=== PATIENT | female | born 1960 | race Caucasian/White ===

== ENCOUNTER 2022-04-05 09:12 | Inpatient (IN) | payer MEDICARE, MEDICAID ==
[2022-03-29 16:23] LABS: CLARITY,URINE CLEAR (Clear); COLOR,URINE YELLOW (Yellow); GLUCOSE, URINE NEGATIVE (Neg); KETONES,URINE NEGATIVE (Neg); LEUKOCYTE ESTERASE ,URINE NEGATIVE (Neg); NITRITES, URINE NEGATIVE (Neg); OCCULT BLOOD,URINE NEGATIVE (Neg); PROTEIN,URINE NEGATIVE (Neg); UROBILINOGEN,URINE 0.2 E.U/dL (0.2-1.0)
[2022-03-29 16:27] LABS: UA COLLECTION TYPE VOIDED
[2022-03-29 16:57] LABS: BASOPHILS # (AUTO) 0.1 X10'3 (0-0.2); BASOPHILS % (AUTO) 1.9 % (0-1); EOSINOPHILS # (AUTO) 0.1 X10'3 (0-0.9); EOSINOPHILS % (AUTO) 1.9 % (0-6); LYMPHOCYTES # (AUTO) 2.3 X10'3 (1.1-4.8); LYMPHOCYTES % (AUTO) 33.9 % (21-51); MEAN CORPUSCULAR HEMOGLOBIN 30.4 PG (27.0-31.0); MEAN CORPUSCULAR HGB CONC 34.2 g/dL (33.0-36.5); MONOCYTES # (AUTO) 0.5 X10'3 (0-0.9); MONOCYTES % (AUTO) 6.8 % (2-12); NEUTROPHILS # (AUTO) 3.8 X10'3 (1.8-7.7); NEUTROPHILS % (AUTO) 55.5 % (42-75); PRE OP HEMATOCRIT 40.9 % (35.0-45.0); PRE OP PLATELET COUNT 318 X10'3 (140-440); RED BLOOD COUNT 4.59 X10'6 (4.20-5.60); RED CELL DISTRIBUTION WIDTH 13.1 % (11.5-14.5)
[2022-03-29 17:06] LABS: PRE OP PROTIME 10.8 SECONDS (9.0-12.0)
[2022-03-29 17:10] LABS: ALBUMIN 3.6 G/DL (3.4-5.0); ALBUMIN/GLOBULIN RATIO 1.1 (1.1-1.5); ALKALINE PHOSPHATASE 93 IU/L (46-116); BLOOD UREA NITROGEN 15 MG/DL (7-18); BUN/CREATININE RATIO 18.1 (6.6-38.0); CALCIUM 8.3 MG/DL (8.5-10.1); CHLORIDE 103 MMOL/L (99-107); CREATININE 0.83 MG/DL (0.40-0.90); PRE OP ALT 16 U/L (30-65); PRE OP ANION GAP 6 (8-16); PRE OP AST 15 U/L (10-37); PRE OP BILIRUB, TOTAL 0.4 MG/DL (0.0-1.0); PRE OP GLUCOSE 101 MG/DL (70-104); PRE OP POTASSIUM 3.7 MMOL/L (3.4-5.1); PRE OP SODIUM 136 MMOL/L (135-145); TOTAL PROTEIN 6.9 G/DL (6.4-8.2); eGFR 70 ML/MIN
[~2022-04-05] VITALS: Ht 165.1 cm; Wt 51.9 kg
[2022-04-05] VITALS (10 sets, daily range): BP systolic 106–144; BP diastolic 41–74
[~2022-04-05 09:12] MED LIST: ASCO500C17 PO; CHRM1TAB PO; HYDR-3964 PO; IBUP-1984 PO; PREG100C PO; TIZA-189 PO; TUMERIC PO; ZINC50TA67 PO; [UNRECOGNIZED DRUG - OTHER] PO; clindamycin-Cleocin 900mg/D5W 50 ML IV ONE; famotidine 20mg tablet PO ONE; ringers solution, lacted 1,000 ML IV SCH
[2022-04-05] MEDS ORDERED: albuterol 2.5 MG/3 ML nebule NEB ONE (10:35)
--- NOTE | 2022-04-05 11:06 | NUR ---
PT PREPPED FOR SURGERY, IV STARTED WITHOUT DIFFICULTY. PT WITH AUDIBLE WHEEZING WITH MOIST COUGH. RESPIRATORY THERAPIST CALLED FOR BREATHING TREATMENT, PT HAS A HISTORY OF COPD AND EMPHYSEMA, SHE HAS AN INHALER AT HOME BUT HAS NOT USED IT FOR 5 DAYS. PT WITH GARCIA PALLOR, EMACIATED. SHE STATES THE NICOTINE PATCHES GIVES HER NIGHTMARES, BUT SHE DOES HAS NICORETTE GUM THAT SHE PREFERS. PT STOPPED ALL OF HER MEDICATIONS 5 DAYS AGO, STATES SHE JUST FELT LIKE IT. PT EDUCATED ON THE IMPORTANCE OF TAPERING MEDICATIONS TO BE DISCONTINUED AND TO SPEAK WITH HER PRIMARY CARE BEFORE STOPPING MEDICATIONS. PT AUNT AT BEDSIDE, PT IS VERY LABILE WITH ANSERING QUESTIONS. STATES SHE HAS CHRONIC NECK AND BACK PAIN AND WHEN SHE TILTS HER HEAD BACK SHE HAS PAIN, WILL NOTIFY ANESTHESIA
--- NOTE | 2022-04-05 13:58 | NUR ---
DR PULIDO AT BEDSIDE, PT APPEARS SLEEPY, NO PREMEDS WERE GIVEN, PTS AUNT DENIES PT USING ANYTHING. PT STATES SHE WAS NOT INTERESTED IN KNOWING ANY INFORMATION ABOUT ANESTHESIA.
[2022-04-05] MEDS ORDERED: LIDOcaine 1% (10mg/ml) 2ml vial ONE (15:40)
[2022-04-05] MEDS ORDERED: morphine 4 MG/ML inj SYRINge IV PRN ×2 (16:00→20:35)
[2022-04-05] MEDS ORDERED: meperidine/PF 25mg/ml syringe IV PRN ×3 (16:00)
[2022-04-05] MEDS ORDERED: ringers solution, lacted 1,000 ML IV SCH (16:00)
[2022-04-05] MEDS ORDERED: ondansetron/PF 4mg/2ml inj IV PRN ×2 (16:00→20:35)
[2022-04-05] MEDS ORDERED: proCHLORperazine 10 MG/2 ml inj IV PRN (16:00)
[2022-04-05] MEDS ORDERED: morphine 2 MG/ML inj. syringe IV PRN ×2 (16:00→20:35)
[2022-04-05] MEDS ORDERED: NORepinephrine 8 MG in NS 250 ML BAG (32 mcg/ml) IV ONE (16:22)
[2022-04-05] MEDS ORDERED: sevoflurane 250ml liquid IH ONE (16:22)
[2022-04-05] MEDS ORDERED: MIDAZolam 1 MG/ML 5ML VIAL ONE (16:32)
[2022-04-05] MEDS ORDERED: fentaNYL /PF 50mcg/ml 5ml ampule ONE (16:32)
[2022-04-05] MEDS ORDERED: NORepinephrine 8mg/ 250ml NS 250 ML IV SCH (17:20)
[2022-04-05] MEDS ORDERED: rocuronium 10mg/ml inj IV ONE ×2 (17:30)
[2022-04-05] MEDS ORDERED: propofol inj 20 ML IV ONE (17:31)
[2022-04-05] MEDS ORDERED: albumin (Human) 5% 250ml 250 ML IV ONE (17:36)
[2022-04-05] MEDS ORDERED: LIDOcaine 2% (20mg/ml) 5ml vial ONE (17:38)
[2022-04-05] MEDS ORDERED: dexamethasone sod phosphate 4mg/ml inj. ONE (17:43)
[2022-04-05] MEDS ORDERED: BUPIVACAINE liposomal/PF 13.3 MG/ML vial IM ONE (19:31)
[2022-04-05] MEDS ORDERED: BUPIVAcaine/PF 2.5 mg/ml (0.25%) 30ml vial ONE (19:31)
[2022-04-05] MEDS ORDERED: metoclopramide 5 mg/ml inj IV PRN (20:35)
[2022-04-05] MEDS ORDERED: albuterol 2.5 MG/3 ML nebule NEB PRN (20:35)
[2022-04-05] MEDS ORDERED: glycopyrrolate 0.2mg/ml inj ONE (20:42)
[2022-04-05] MEDS ORDERED: neostigmine methylsulfate 1 MG/ML 10ml vial ONE (20:42)
--- NOTE | 2022-04-05 20:52 | NUR ---
Received from OR via BED , accompanied by Anesthesiologist DR NGO and report given by Anesthesiologist. PT THRASHING IN BED. CHEST TUBE RIGHT CHEST TO 20 SUCTION, DSG CDI, 120MLS NOTED IN ATRIUM. F/C WITH 500MLS CLEAR YELLOW URINE PRESENT. PIV #20 LEFT FA PATENT. TRIPLE LUMEN CVP LINE PRESENT WITH OPSITE CDI. RESTRAINTS APPLIED PER MD ORDER AND ATIVAN GIVEN BY MAC RN WITH GOOD RESULTS. SCD'S BILAT. Addendum: 04/05/22 at 2121 by Paris Llanos RN Amended: Links added.
[2022-04-05] MEDS ORDERED: LORazepam 2 mg/ml vial ONE (20:54)
[2022-04-05 21:05] LABS: ABG BASE EXCESS -6.2 mmol/L (-2.0-2.0); ABG HCO3 20.9 mmol/L (22.0-26.0); ABG OXYGEN SATURATION 99.1 % (94-97); ABG PCO2 (T) 46.7 mmHg (32.0-45.0); ABG PO2 (T) 254.3 mmHg (75.0-100.0); FCOHb 0.3 % (0.0-3.9); FLOW 10 L/min; FMetHb 0.3 % (0.0-1.5); FO2Hb 98.5 % (94-97); PATIENT TEMPERATURE 36.2; TOTAL HEMOGLOBIN 11.2 G/dl (12.0-16.0)
[2022-04-05] MEDS ORDERED: acetaminophen 1,000mg/100ml IV 100 ML IV ONE (21:15)
[2022-04-05 21:34] LABS: BASOPHILS # (AUTO) 0.1 X10'3 (0-0.2); BASOPHILS % (AUTO) 0.8 % (0-1); EOSINOPHILS % (AUTO) 0.2 % (0-6); HEMATOCRIT 32.9 % (35.0-45.0); HEMOGLOBIN 10.5 g/dl (12.0-16.0); LYMPHOCYTES # (AUTO) 0.5 X10'3 (1.1-4.8); LYMPHOCYTES % (AUTO) 3.4 % (21-51); MEAN CORPUSCULAR HEMOGLOBIN 28.6 PG (27.0-31.0); MEAN CORPUSCULAR VOLUME 89.4 FL (78-98); MEAN PLATELET VOLUME 7.8 FL (7.4-10.4); MONOCYTES # (AUTO) 0.3 X10'3 (0-0.9); MONOCYTES % (AUTO) 2.4 % (2-12); NEUTROPHILS # (AUTO) 12.6 X10'3 (1.8-7.7); NEUTROPHILS % (AUTO) 93.2 % (42-75); PLATELET COUNT 243 X10'3 (140-440); RED BLOOD COUNT 3.69 X10'6 (4.20-5.60); RED CELL DISTRIBUTION WIDTH 13.3 % (11.5-14.5); WHITE BLOOD COUNT 13.6 X10'3 (4.5-11.0)
[2022-04-05 21:40] LABS: ALANINE AMINOTRANSFERASE 17 U/L (12-78); ALBUMIN 2.8 G/DL (3.4-5.0); ALBUMIN/GLOBULIN RATIO 1.3 (1.1-1.5); ALKALINE PHOSPHATASE 66 IU/L (46-116); ANION GAP 7 (8-16); ASPARTATE AMINO TRANSFERASE 16 U/L (10-37); BILIRUBIN,TOTAL 0.2 MG/DL (0.1-1.0); BLOOD UREA NITROGEN 12 MG/DL (7-18); BUN/CREATININE RATIO 15.2 (6.6-38.0); CALCIUM 6.9 MG/DL (8.5-10.1); CHLORIDE 108 MMOL/L (99-107); CREATININE 0.79 MG/DL (0.40-0.90); GLUCOSE 159 MG/DL (70-104); MAGNESIUM 1.3 MG/DL (1.5-2.4); SODIUM 138 MMOL/L (135-145); TOTAL CARBON DIOXIDE 23.2 MMOL/L (24-32); eGFR 74 ML/MIN
--- NOTE | 2022-04-05 21:42 | NUR ---
PT WAS RECOVERED IN ICU. VSS. CHEST TUBE PATENT WITH DSG CDI WITH NO NEW OUTPUT IN [facility]. FC WITH 300ML NEW OUTPUT. PIV PATENT. CVP LINE RIGHT IJ PATENT WITH DSG CDI AND GOOD WAVEFORM. LEFT ARTIERIAL LINE PATENT WITH GOOD WAVEFORM. PT IS CURRENTLY SLEEPING AFTER BEING MEDICATED FOR PAIN. REPORT GIVEN TO DANIELA LANDRY AT THE BEDSIDE WITH ALL QUESTIONS ANSWERED. Addendum: 04/05/22 at 2158 by Paris Llanos RN Amended: Links added.
[2022-04-05 21:57] LABS: TOTAL CELLS COUNTED 100
[2022-04-05 21:58] LABS: PLATELET ESTIMATE NORMAL
--- NOTE | 2022-04-05 22:28 | NUR ---
RN Note -Pt anxious and combative, complaining of back pain. Pain relieved with medication.
[2022-04-05 23:02] LABS: ABG HCO3 24.2 mmol/L (22.0-26.0); ABG OXYGEN SATURATION 96.3 % (94-97); ABG PCO2 (T) 51.1 mmHg (32.0-45.0); ABG PO2 (T) 88.6 mmHg (75.0-100.0); FCOHb 0.3 % (0.0-3.9); FLOW 2 L/min; FMetHb 0.4 % (0.0-1.5); FO2Hb 95.6 % (94-97); PATIENT TEMPERATURE 36.6
[2022-04-05] MEDS: potassium Cl 20mEq in D5-NS 1,000 ML IV SCH (23:39)
[2022-04-06] VITALS (24 sets, daily range): BP systolic 88–134; BP diastolic 56–78
[2022-04-06] MEDS: clindamycin 600mg/D5W 50ml 50 ML IV SCH ×4 (02:08→20:06)
[2022-04-06] MEDS: ketorolac trometh. 30mg/ml inj. IV SCH ×4 (02:08→20:09)
[2022-04-06 03:07] LABS: BASOPHILS % (AUTO) 0.1 % (0-1); EOSINOPHILS % (AUTO) 0 % (0-6); HEMATOCRIT 36.5 % (35.0-45.0); LYMPHOCYTES # (AUTO) 0.5 X10'3 (1.1-4.8); LYMPHOCYTES % (AUTO) 3.7 % (21-51); MEAN CORPUSCULAR HEMOGLOBIN 29.1 PG (27.0-31.0); MEAN CORPUSCULAR HGB CONC 32.9 g/dL (33.0-36.5); MEAN CORPUSCULAR VOLUME 88.7 FL (78-98); MEAN PLATELET VOLUME 8.4 FL (7.4-10.4); MONOCYTES # (AUTO) 0.6 X10'3 (0-0.9); MONOCYTES % (AUTO) 4.2 % (2-12); NEUTROPHILS # (AUTO) 12.1 X10'3 (1.8-7.7); PLATELET COUNT 250 X10'3 (140-440); RED BLOOD COUNT 4.12 X10'6 (4.20-5.60); RED CELL DISTRIBUTION WIDTH 13.3 % (11.5-14.5); WHITE BLOOD COUNT 13.1 X10'3 (4.5-11.0)
[2022-04-06 03:17] LABS: APTT 26 SECONDS (22-32)
[2022-04-06 03:24] LABS: ALBUMIN 3.1 G/DL (3.4-5.0); ANION GAP 8 (8-16); BLOOD UREA NITROGEN 10 MG/DL (7-18); BUN/CREATININE RATIO 14.5 (6.6-38.0); CALCIUM 7.4 MG/DL (8.5-10.1); CHLORIDE 103 MMOL/L (99-107); CREATININE 0.69 MG/DL (0.40-0.90); GLUCOSE 181 MG/DL (70-104); MAGNESIUM 1.4 MG/DL (1.5-2.4); POTASSIUM 4.1 MMOL/L (3.5-5.1); SODIUM 135 MMOL/L (135-145); eGFR 87 ML/MIN
--- NOTE | 2022-04-06 06:00 | NUR ---
RN Note -Pt sleepy but cooperative and appropriate.
[2022-04-06] MEDS: gabapentin 300mg capsule PO SCH ×2 (08:00→20:09)
[2022-04-06] MEDS: potassium Cl 20mEq in D5-NS 1,000 ML IV SCH ×2 (09:05→14:12)
--- NOTE | 2022-04-06 11:48 | NUR ---
Malnutrition Consult: Pt s/p open R upper lobectomy this admit per EMR. Pt reports 2-13 lb wt loss w/ decreased appetite 3 months [employer] per RN Malnutrition Screen. Pt seen by RD at bedside; pt reports "not much" wt loss and good appetite "starving" this AM. RD educated pt on initial clear liquid meal post-op now on regular diet to receive solid foods WL. Pt is thin but no overt muscle/fat wasting visibly evident; likely maintains stable wt at baseline. Pt has no edema, no significant weakness noted per EMR, and no significant wt loss per pt; lacks minimum malnutrition criteria at this time. RD encouraged pt to request RD if nutrition questions/concerns this admit. Addendum: 04/06/22 at [address] Amended: Links added.
--- NOTE | 2022-04-06 16:11 | NUR ---
Patient in room CICU 2008. I have received report from Darling LANDRY and had the opportunity to ask questions and assume patient care.
[2022-04-06] MEDS: HYDROcodone/acetaminophen 10/325mg tab PO PRN (17:54)
[2022-04-07] VITALS (23 sets, daily range): BP systolic 93–134; BP diastolic 57–88
[2022-04-07] MEDS: ketorolac trometh. 30mg/ml inj. IV SCH ×4 (01:42→20:21)
[2022-04-07] MEDS: clindamycin 600mg/D5W 50ml 50 ML IV SCH ×4 (01:42→20:21)
[2022-04-07 02:37] LABS: BASOPHILS % (AUTO) 0.5 % (0-1); EOSINOPHILS # (AUTO) 0.1 X10'3 (0-0.9); EOSINOPHILS % (AUTO) 0.9 % (0-6); HEMATOCRIT 34.1 % (35.0-45.0); HEMOGLOBIN 11.2 g/dl (12.0-16.0); LYMPHOCYTES # (AUTO) 1.7 X10'3 (1.1-4.8); LYMPHOCYTES % (AUTO) 23.7 % (21-51); MEAN CORPUSCULAR HEMOGLOBIN 29.3 PG (27.0-31.0); MEAN CORPUSCULAR HGB CONC 32.8 g/dL (33.0-36.5); MEAN CORPUSCULAR VOLUME 89.4 FL (78-98); MEAN PLATELET VOLUME 7.8 FL (7.4-10.4); MONOCYTES # (AUTO) 0.6 X10'3 (0-0.9); MONOCYTES % (AUTO) 8.4 % (2-12); NEUTROPHILS # (AUTO) 4.9 X10'3 (1.8-7.7); NEUTROPHILS % (AUTO) 66.5 % (42-75); PLATELET COUNT 242 X10'3 (140-440); RED BLOOD COUNT 3.82 X10'6 (4.20-5.60); RED CELL DISTRIBUTION WIDTH 13.4 % (11.5-14.5); WHITE BLOOD COUNT 7.3 X10'3 (4.5-11.0)
[2022-04-07 02:38] LABS: ALBUMIN 2.6 G/DL (3.4-5.0); ANION GAP 5 (8-16); BLOOD UREA NITROGEN 11 MG/DL (7-18); BUN/CREATININE RATIO 16.2 (6.6-38.0); CALCIUM 7.5 MG/DL (8.5-10.1); CHLORIDE 108 MMOL/L (99-107); CREATININE 0.68 MG/DL (0.40-0.90); GLUCOSE 105 MG/DL (70-104); MAGNESIUM 1.9 MG/DL (1.5-2.4); SODIUM 139 MMOL/L (135-145); eGFR 88 ML/MIN
[2022-04-07] MEDS: potassium Cl 20mEq in D5-NS 1,000 ML IV SCH (07:55)
[2022-04-07] MEDS: gabapentin 300mg capsule PO SCH ×2 (07:55→20:20)
[2022-04-07] MEDS: HYDROmorphone inj. 0.5 MG/0.5 ML DISP.SYRIN IV PRN ×2 (10:11→18:51)
[2022-04-07] MEDS: HYDROcodone/acetaminophen 10/325mg tab PO PRN ×2 (10:12→17:00)
[2022-04-08] VITALS (18 sets, daily range): BP systolic 90–137; BP diastolic 56–80
[2022-04-08] MEDS: ketorolac trometh. 30mg/ml inj. IV SCH ×4 (02:47→19:58)
[2022-04-08] MEDS: clindamycin 600mg/D5W 50ml 50 ML IV SCH ×4 (02:47→19:59)
[2022-04-08] MEDS: HYDROmorphone inj. 0.5 MG/0.5 ML DISP.SYRIN IV PRN ×3 (02:48→17:44)
[2022-04-08 03:01] LABS: BASOPHILS % (AUTO) 0.5 % (0-1); EOSINOPHILS # (AUTO) 0.3 X10'3 (0-0.9); EOSINOPHILS % (AUTO) 4.9 % (0-6); HEMATOCRIT 33.9 % (35.0-45.0); HEMOGLOBIN 11.1 g/dl (12.0-16.0); LYMPHOCYTES # (AUTO) 1.4 X10'3 (1.1-4.8); LYMPHOCYTES % (AUTO) 20.6 % (21-51); MEAN CORPUSCULAR HEMOGLOBIN 29.2 PG (27.0-31.0); MEAN CORPUSCULAR HGB CONC 32.9 g/dL (33.0-36.5); MEAN CORPUSCULAR VOLUME 88.9 FL (78-98); MEAN PLATELET VOLUME 7.8 FL (7.4-10.4); MONOCYTES # (AUTO) 0.6 X10'3 (0-0.9); MONOCYTES % (AUTO) 8.4 % (2-12); NEUTROPHILS # (AUTO) 4.6 X10'3 (1.8-7.7); NEUTROPHILS % (AUTO) 65.6 % (42-75); PLATELET COUNT 246 X10'3 (140-440); RED BLOOD COUNT 3.81 X10'6 (4.20-5.60); RED CELL DISTRIBUTION WIDTH 13.4 % (11.5-14.5)
[2022-04-08 03:14] LABS: ALBUMIN 2.4 G/DL (3.4-5.0); ANION GAP 5 (8-16); BLOOD UREA NITROGEN 12 MG/DL (7-18); BUN/CREATININE RATIO 18.8 (6.6-38.0); CALCIUM 7.8 MG/DL (8.5-10.1); CHLORIDE 108 MMOL/L (99-107); CREATININE 0.64 MG/DL (0.40-0.90); GLUCOSE 108 MG/DL (70-104); MAGNESIUM 1.9 MG/DL (1.5-2.4); POTASSIUM 4.5 MMOL/L (3.5-5.1); SODIUM 139 MMOL/L (135-145); TOTAL CARBON DIOXIDE 25.9 MMOL/L (24-32); eGFR > 90 ML/MIN
[2022-04-08] MEDS: HYDROcodone/acetaminophen 10/325mg tab PO PRN ×4 (05:41→19:59)
[2022-04-08] MEDS: potassium Cl 20mEq in D5-NS 1,000 ML IV SCH (21:06)
[2022-04-08] MEDS ORDERED: benzonatate 100mg capsule PO PRN (23:00)
[2022-04-09] VITALS (8 sets, daily range): BP systolic 112–161; BP diastolic 64–86
[2022-04-09] MEDS: ketorolac trometh. 30mg/ml inj. IV SCH ×4 (01:36→20:21)
[2022-04-09] MEDS: clindamycin 600mg/D5W 50ml 50 ML IV SCH ×4 (01:36→20:17)
[2022-04-09] MEDS: HYDROcodone/acetaminophen 10/325mg tab PO PRN ×2 (01:44→22:50)
[2022-04-09 06:26] LABS: BASOPHILS # (AUTO) 0.1 X10'3 (0-0.2); BASOPHILS % (AUTO) 0.7 % (0-1); EOSINOPHILS # (AUTO) 0.2 X10'3 (0-0.9); HEMATOCRIT 34.2 % (35.0-45.0); HEMOGLOBIN 11.3 g/dl (12.0-16.0); LYMPHOCYTES # (AUTO) 1.1 X10'3 (1.1-4.8); LYMPHOCYTES % (AUTO) 10.6 % (21-51); MEAN CORPUSCULAR HEMOGLOBIN 29.4 PG (27.0-31.0); MEAN CORPUSCULAR HGB CONC 33.1 g/dL (33.0-36.5); MEAN CORPUSCULAR VOLUME 88.9 FL (78-98); MEAN PLATELET VOLUME 7.7 FL (7.4-10.4); MONOCYTES # (AUTO) 0.5 X10'3 (0-0.9); MONOCYTES % (AUTO) 5.3 % (2-12); NEUTROPHILS # (AUTO) 8.1 X10'3 (1.8-7.7); NEUTROPHILS % (AUTO) 81.4 % (42-75); PLATELET COUNT 271 X10'3 (140-440); RED BLOOD COUNT 3.85 X10'6 (4.20-5.60); RED CELL DISTRIBUTION WIDTH 13.4 % (11.5-14.5); WHITE BLOOD COUNT 9.9 X10'3 (4.5-11.0)
[2022-04-09 06:29] LABS: ALBUMIN 2.5 G/DL (3.4-5.0); ANION GAP 4 (8-16); BLOOD UREA NITROGEN 9 MG/DL (7-18); BUN/CREATININE RATIO 14.1 (6.6-38.0); CALCIUM 8.2 MG/DL (8.5-10.1); CHLORIDE 103 MMOL/L (99-107); CREATININE 0.64 MG/DL (0.40-0.90); GLUCOSE 133 MG/DL (70-104); MAGNESIUM 1.9 MG/DL (1.5-2.4); POTASSIUM 4.9 MMOL/L (3.5-5.1); SODIUM 136 MMOL/L (135-145); TOTAL CARBON DIOXIDE 28.9 MMOL/L (24-32); eGFR > 90 ML/MIN
[2022-04-09] MEDS: guaiFENesin ER 600mg tablet PO SCH ×2 (08:00→20:20)
[2022-04-09] MEDS: ibuprofen tablet 400 MG TABLET PO SCH ×2 (11:15→17:28)
[2022-04-09] MEDS: gabapentin 300mg capsule PO SCH ×2 (11:21→17:28)
--- NOTE | 2022-04-09 11:51 | NUR ---
F/u 04/09: Pt PO fluctuating ~25-50% avg meals. Pt seen by DORIE for verbal high protein ed; pt is agreeable to strawberry Femi smoothie BIDLD for wound healing needs. Noted ONS now active in EMR; dietary notified. Addendum: 04/09/22 at [address] Amended: Links added.
--- NOTE | 2022-04-09 13:37 | NUR ---
Problems reprioritized. Patient report given, questions answered & plan of care reviewed with [Olga RN, Placed on personnel monitor SR without ectopy.].
[2022-04-09] MEDS: JUVEN Smoothie Arginine/Glut./Ca2+Bmb (Juven 19.3pkt) 240ml cup PO SCH (17:30)
--- NOTE | 2022-04-09 18:37 | NUR ---
Problems reprioritized. Patient report given, questions answered & plan of care reviewed with FRANTZ GONZALEZ.
[2022-04-10] MEDS: ibuprofen tablet 400 MG TABLET PO SCH ×4 (00:28→23:44)
[2022-04-10 02:00] VITALS: BP 148/91
[2022-04-10] MEDS: ketorolac trometh. 30mg/ml inj. IV SCH ×4 (02:00→19:49)
[2022-04-10] MEDS: clindamycin 600mg/D5W 50ml 50 ML IV SCH ×4 (02:00→19:48)
[2022-04-10 06:00] VITALS: BP 113/76
--- NOTE | 2022-04-10 06:30 | NUR ---
Patient in room PCU 3028. I have received report from Markell LANDRY and had the opportunity to ask questions and assume patient care.
[2022-04-10] MEDS: JUVEN Smoothie Arginine/Glut./Ca2+Bmb (Juven 19.3pkt) 240ml cup PO SCH ×2 (07:30→17:30)
[2022-04-10] MEDS: gabapentin 300mg capsule PO SCH ×4 (08:00→23:46)
--- NOTE | 2022-04-10 09:08 | NUR ---
Initial: Pt s/p RUL this admit per EMR. Currently on Regular diet w/ low PO intake, avg 40% x 9 meals and 25% of one Femi smoothie, partially meeting needs. No BM documented this admit so that may be impacting PO trends. Recommend routine bowel care if MD agreeable. Will continue to monitor and make recommendations as appropriate. Recs; 1. Continue Regular diet as tolerated 2. Femi Smoothies BIDBD 3. Routine bowel care if MD agreeable 4. Weekly wts Addendum: 04/10/22 at [address] Amended: Links added.
[2022-04-10] MEDS: guaiFENesin ER 600mg tablet PO SCH ×2 (09:52→19:49)
[2022-04-10 11:00] VITALS: BP 138/83
[2022-04-10] MEDS ORDERED: magnesium citrate 296ml oral solution PO ONE (13:40)
[2022-04-10] MEDS ORDERED: ondansetron/PF 4mg/2ml inj IV PRN (13:40)
[2022-04-10 15:00] VITALS: BP 142/79
[2022-04-10 18:00] VITALS: BP 122/77
--- NOTE | 2022-04-10 18:29 | NUR ---
Problems reprioritized. Patient report given, questions answered & plan of care reviewed with Markell RN, patient stable at transfer of care.
[2022-04-10] MEDS: HYDROcodone/acetaminophen 10/325mg tab PO PRN (18:32)
[2022-04-10] MEDS: potassium Cl 20mEq in D5-NS 1,000 ML IV SCH (21:50)
[2022-04-10 22:00] VITALS: BP 100/56
[2022-04-11 02:00] VITALS: BP 107/67
[2022-04-11] MEDS: clindamycin 600mg/D5W 50ml 50 ML IV SCH ×3 (02:15→14:41)
[2022-04-11] MEDS: HYDROcodone/acetaminophen 10/325mg tab PO PRN ×2 (06:36→16:20)
[2022-04-11 07:00] VITALS: BP 97/70
[2022-04-11] MEDS: ibuprofen tablet 400 MG TABLET PO SCH ×2 (07:21→16:18)
[2022-04-11] MEDS: guaiFENesin ER 600mg tablet PO SCH (07:31)
[2022-04-11] MEDS: gabapentin 300mg capsule PO SCH ×2 (07:31→16:00)
[2022-04-11] MEDS: JUVEN Smoothie Arginine/Glut./Ca2+Bmb (Juven 19.3pkt) 240ml cup PO SCH (07:35)
--- NOTE | 2022-04-11 09:53 | NUR ---
Patient's chest tube was removed by MD and Morphine 4mg/1 ml IV given before this procedure.
--- NOTE | 2022-04-11 10:48 | NUR ---
There is no bleeding at chest tube removed area, dressing is dry, neat, intact.
[2022-04-11 11:00] VITALS: BP 108/74
--- NOTE | 2022-04-11 15:07 | NUR ---
I have reveiwed the charting by Leighton Billings and agree with her assessment of this pt.
--- NOTE | 2022-04-11 18:16 | NUR ---
Patient no complain of pain, no distressful, alert/oriented x 3, safely left hospital at 18:10 PM via wheel chair per staff with her.
== END 2022-04-11 18:03 | disposition home or self-care (01) | DRG 164 ==
LOC: PAS IN 09:12 → EDUNIT# 12:15 → CICU 2S 20:29 → PCU 3S 04-09 13:32
PROVIDERS: ADMIT Surgery; ATTEND Surgery
PROC: 07B74ZX Excision of Thorax Lymphatic, Percutaneous Endoscopic Approach, Diagnostic (ICD-10-PCS; 2022-04-05)
PROC: 0BNC4ZZ Release Right Upper Lung Lobe, Percutaneous Endoscopic Approach (ICD-10-PCS; 2022-04-05)
PROC: 0W9900Z Drainage of Right Pleural Cavity with Drainage Device, Open Approach (ICD-10-PCS; 2022-04-05)
PROC: 8E0W4CZ Robotic Assisted Procedure of Trunk Region, Percutaneous Endoscopic Approach (ICD-10-PCS; 2022-04-05)
PROC: 0BTC4ZZ Resection of Right Upper Lung Lobe, Percutaneous Endoscopic Approach (ICD-10-PCS; principal; 2022-04-05 16:22)
DX: D49.1 Neoplasm of unspecified behavior of respiratory system (principal); J93.82 Other air leak; M54.2 Cervicalgia; J43.9 Emphysema, unspecified; M54.9 Dorsalgia, unspecified; G89.29 Other chronic pain; F17.210 Nicotine dependence, cigarettes, uncomplicated
CPT/HCPCS: 36415; 36600; 71045; 71046; 80048; 80053; 81003; 82803; 82948; 83735; 85007; 85018; 85025; 85610; 85730; 86885; 86900; 86901; 87081; 93005; 94640; 94668; 94760; 97116; 97161; 97530; A4615; A4618; A6212; A6253; A6258; A6449; A7000; A7048; C1758; C9250; C9290; G0378; J0131; J1100; J1170; J1885; J2060; J2250; J2270; J2405; J2704; J2710; J3010; J3480; J3490; J7030; J7040; J7120; P9045; U0003; U0005